=== PATIENT | female | born 1950 | race Caucasian/White ===

== ENCOUNTER 2021-09-09 08:46 | Inpatient (IN) ==
[2021-09-09 09:12] LABS: Basophils # (auto) 0.05 K/uL (0-0.2); Basophils % (auto) 0.7 %; Eosinophils # (auto) 0.19 K/uL (0-0.5); Eosinophils % (auto) 2.8 %; Hematocrit (blood only) 41.5 % (37-47); Hemoglobin 13.8 g/dL (12.0-16.0); Immature Granulocytes # (auto) 0.03 K/uL (0.00-0.02); Immature Granulocytes % (auto) 0.4 %; Lymphocytes # (auto) 2.99 K/uL (1.2-3.4); Lymphocytes % (auto) 43.3 %; Mean Corpuscular Hemoglobin 32.2 pg (25-34); Mean Corpuscular Hgb Conc 33.3 g/dL (32-36); Mean Corpuscular Volume 96.7 fL (80-100); Mean Platelet Volume 10.8 fL (7.4-10.4); Monocytes # (auto) 0.62 K/uL (0.11-0.59); Neutrophils # (auto) 3.02 K/uL (1.4-6.5); Neutrophils % (auto) 43.8 %; Platelet Count 328 K/uL (130-400); RDW Coefficient of Variation 13.5 % (11.5-14.5); RDW Standard Deviation 47.7 fL (36.4-46.3); Red Blood Count 4.29 M/uL (4.2-5.4)
[2021-09-09 09:24] LABS: INR 0.9 (0.9-1.1); Partial Thromboplastin Time 25.4 Seconds (21.0-31.0); Prothrombin Time 9.5 Seconds (9.0-12.0)
[2021-09-09 09:28] LABS: Alanine Aminotransferase 21 U/L (12-78); Albumin Level 3.6 gm/dl (3.4-5.0); Aspartate Aminotransferase 20 U/L (15-37); BUN Creatinine Ratio 20.3 (10-20); Blood Urea Nitrogen 16 mg/dl (7-18); Calcium 9.1 mg/dl (8.5-10.1); Carbon Dioxide 26 mmol/L (21-32); Chloride 106 mmol/L (98-107); Creatinine Clr Calc Pharmacy 64.2 ml/min; Est GFR (African American) 89.4 ml/min; Est GFR (Non-African American) 77.1 ml/min; Glucose 96 mg/dl (70-99); Sodium 139 mmol/L (136-145)
[2021-09-09 09:33] LABS: Albumin Globulin Ratio 0.9 (0.9-2); Alkaline Phosphatase 103 U/L (45-117); Bilirubin,Total 0.4 mg/dl (0.2-1); Globulin 4.1 gm/dl (2.5-4.0); Total Protein 7.7 gm/dl (6.4-8.2); Troponin I < 0.015 ng/ml (0-0.045)
--- NOTE | 2021-09-09 10:00 | XRay Report ---
XR chest 2V PA/lateral CLINICAL HISTORY: Atypical chest pain. COMPARISON STUDY: Chest radiograph October 12, 2012. FINDINGS: Lung volumes are normal. Lungs are clear. There is no pneumothorax or pleural effusion. Car diac size is normal. Mediastinal contours are normal. There is no evidence for pulmonary edema. IMPRESSION: No acute cardiopulmonary findings. ACT 112: Negative or not required by law. Electronically signed by: Jose David Quach M.D. 09/09/2021 9:58 AM
[2021-09-09] MEDS ORDERED: NITROGLYCERIN SL 0.4 MG/TAB TAB SL PRN (11:00)
[2021-09-09] MEDS ORDERED: ASPIRIN CHEW 324 MG PO STA (11:00)
--- NOTE | 2021-09-09 11:06 | Emergency Department Note ---
Impression & Plan Chest pain, exertional, Abnormal ECG ED Provider Note NAME: TALHA BUTTS AGE: 70 SEX: F : 1950 ARRIVES VIA: Walk-In INFORMANT: Patient ED PROVIDER(S): Jersey Eason DO CHIEF COMPLAINT: chest pain HPI: Patient is a 70-year-old female who presents to the ER for chest pain. She notes it is midsternal and pressure and goes up into her neck and down her bilateral arms. She describes as a pressure/tightness. It comes and goes with exertion. Resolves with rest. After she sits down generally goes away within 10 minutes. Denies any belly pain, nausea, vomiting, or diarrhea. No dysuria, urgency, or frequency. She does have a known aortic aneurysm and ascending aspect. It measures just under 4 cm. She had a recent CT scan performed within the past 6 weeks which showed no change. ROS: See above HPI for pertinent positives & negatives. A total of 10 systems reviewed and were otherwise negative. PAST MEDICAL HISTORY:See Below PAST SURGICAL HISTORY:See Below FAMILY HISTORY:See Below SOCIAL HISTORY:See Below HOME MEDICATIONS:See Below ALLERGIES:See Below VITALS:See Below PHYSICAL EXAMINATION: GENERAL: Sitting up in bed, alert, well appearing, well nourished, no distress, non-toxic EYE EXAM: normal conjunctiva. PERRL and EOM's grossly intact. OROPHARYNX: no exudate, no erythema, lips, buccal mucosa, and tongue normal and mucous membranes are moist NECK: supple, no nuchal rigidity, no adenopathy, non-tender LUNGS: Clear to auscultation. Normal chest wall mechanics HEART: no murmurs, S1 normal and S2 normal ABDOMEN: abdomen soft, non-tender, normo-active bowel sounds, no masses, no rebound or guarding. UPPER EXTREMITIES: upper extremities are grossly normal. Radial pulses are equal bilateral LOWER EXTREMITIES: No pitting edema. Calves are ago bilateral NEURO EXAM: Normal sensorium, cranial nerves II-XII grossly intact, normal speech, no gross weakness of arms, no gross weakness of legs. MEDICAL DECISION MAKING: Patient is a 70-year-old female that presents the ER for exertional chest pain which resolves with rest. She was given aspirin and ordered nitro if the pain recurs. Labs showed no significant leukocytosis or anemia. INR was unremarkable. BMP along with LFTs bilirubin and troponin was unremarkable. Covid was negative. Chest x-ray showed normal mediastinum. She does have a known ascending aneurysm at 4 cm which was recently checked within the past 6 weeks and was unremarkable. Patient was discussed with the hospitalist with the exertional symptoms and abnormal findings/ST wave changes V4 through V6. Triage Nursing notes reviewed. Limited review of prior medical records performed Vital Signs: reviewed and remarkable for HTN Differential diagnosis: Differential diagnoses includes but is not limited to acute coronary syndrome, myocardial infarction, pericarditis, pulmonary embolus, aortic dissection, pneumonia, pneumothorax, musculoskeletal, shingles, esophageal. ER treatment provided: See below Diagnostics interpreted by me: ECG: Sinus rhythm rate of 64 Left axis T wave inversion in lead III ST depressions in V3 through V6 QTC 418 ST wave changes are new from old EKG performed in 2011 Cardiac Monitoring: An order was placed for continuous cardiac monitoring. The monitor shows a rate of 62 with sius rhythm. Laboratory studies: As stated above and show below. Imaging studies: Portable AP upright 1 view of the chest shows no focal infiltrate, pneumothorax and a normal mediastinum Consultation(s): Discussed with the hospitalist for further evaluation Dr. Nance Procedures: none Critical Care: None Past Med/Surg History Social History Smoking Status: Never smoker Preferred Language: Arabic Feels Safe at Home: Yes Allergies Allergies Allergy/AdvReac Type Severity Reaction Status Date / Time No Known Allergies Allergy Unverified 09/09/21 11:34 Home Meds Home Medications Medication Instructions Recorded Confirmed cholecalciferol (vitamin D3) 25 1 unit PO DAILY 09/09/21 09/09/21 mcg (1,000 unit) tablet (Vitamin D3) cyanocobalamin (vitamin B-12) 1,000 mcg PO DAILY 09/09/21 09/09/21 1,000 mcg tablet (Vitamin B-12) Results & Data (ED) Vital Signs Vital Signs - 24 hr 09/09/21 08:52 09/09/21 11:02 Temperature 36.0 C L Temperature Source Temporal Artery Scan Pulse Rate 73 Pulse Rate [Apical] 60 Pulse Rhythm Regular Pulse Rhythm [Apical] Regular Pulse Strength Normal Pulse Strength [Apical] Normal Respiratory Rate 20 16 Respiratory Effort / Characteristics Non-Labored Spontaneous Non-Labored Spontaneous Respiratory Depth Normal Normal Respiratory Pattern Regular Regular Blood Pressure 120/82 Blood Pressure [Left Arm] 149/81 H Blood Pressure Mean 94 Blood Pressure Mean [Left Arm] 103 Blood Pressure Position Sitting Blood Pressure Position [Left Arm] Semi-fowlers Pulse Oximetry 98 99 Oxygen Delivery Method Room Air Room Air Sepsis Recent Fever Within 48 Hours No Sepsis New/Unexplained Change in Mental Status No Sepsis Action Taken by Nursing No Action Required Laboratory Data Result diagrams: 09/09/21 09:04 09/09/21 09:04 Lab Results 09/09/21 09/09/21 09/09/21 Range/Units 09:04 09:04 09:04 WBC 6.90 (4.8-10.8) K/uL RBC 4.29 (4.2-5.4) M/uL Hgb 13.8 (12.0-16.0) g/dL Hct 41.5 (37-47) % MCV 96.7 (80-100) fL MCH 32.2 (25-34) pg MCHC 33.3 (32-36) g/dL RDW Std Deviation 47.7 H (36.4-46.3) fL RDW Coeff of Jyothi 13.5 (11.5-14.5) % Plt Count 328 (130-400) K/uL MPV 10.8 H (7.4-10.4) fL Immature Gran % (Auto) 0.4 % Neut % (Auto) 43.8 % Lymph % (Auto) 43.3 % [place] % (Auto) 9.0 % Eos % (Auto) 2.8 % Baso % (Auto) 0.7 % Neut # (Auto) 3.02 (1.4-6.5) K/uL Lymph # (Auto) 2.99 (1.2-3.4) K/uL [place] # (Auto) 0.62 H (0.11-0.59) K/uL Eos # (Auto) 0.19 (0-0.5) K/uL Baso # (Auto) 0.05 (0-0.2) K/uL Immature Gran # (Auto) 0.03 H (0.00-0.02) K/uL PT 9.5 (9.0-12.0) Seconds INR 0.9 (0.9-1.1) APTT 25.4 (21.0-31.0) Seconds PTT Ratio 1.0 Sodium 139 (136-145) mmol/L Potassium 4.0 (3.5-5.1) mmol/L Chloride 106 (98-107) mmol/L Carbon Dioxide 26 (21-32) mmol/L Anion Gap 7.0 (3-11) BUN 16 (7-18) mg/dl Creatinine 0.77 (0.6-1.2) mg/dl Est Cr Clr Drug Dosing 64.2 ml/min Est GFR ( Amer) 89.4 ml/min Est GFR (Non-Af Amer) 77.1 ml/min BUN/Creatinine Ratio 20.3 H (10-20) Glucose 96 (70-99) mg/dl Calcium 9.1 (8.5-10.1) mg/dl Total Bilirubin 0.4 (0.2-1) mg/dl AST 20 (15-37) U/L ALT 21 (12-78) U/L Alkaline Phosphatase 103 (45-117) U/L Troponin I < 0.015 (0-0.045) ng/ml Total Protein 7.7 (6.4-8.2) gm/dl Albumin 3.6 (3.4-5.0) gm/dl Globulin 4.1 H (2.5-4.0) gm/dl Albumin/Globulin Ratio 0.9 (0.9-2) SARS-CoV-2, RNA, NAAT (NEGATIVE) 09/09/21 Range/Units 11:11 WBC (4.8-10.8) K/uL RBC (4.2-5.4) M/uL Hgb (12.0-16.0) g/dL Hct (37-47) % MCV (80-100) fL MCH (25-34) pg MCHC (32-36) g/dL RDW Std Deviation (36.4-46.3) fL RDW Coeff of Jyothi (11.5-14.5) % Plt Count (130-400) K/uL MPV (7.4-10.4) fL Immature Gran % (Auto) % Neut % (Auto) % Lymph % (Auto) % [place] % (Auto) % Eos % (Auto) % Baso % (Auto) % Neut # (Auto) (1.4-6.5) K/uL Lymph # (Auto) (1.2-3.4) K/uL [place] # (Auto) (0.11-0.59) K/uL Eos # (Auto) (0-0.5) K/uL Baso # (Auto) (0-0.2) K/uL Immature Gran # (Auto) (0.00-0.02) K/uL PT (9.0-12.0) Seconds INR (0.9-1.1) APTT (21.0-31.0) Seconds PTT Ratio Sodium (136-145) mmol/L Potassium (3.5-5.1) mmol/L Chloride (98-107) mmol/L Carbon Dioxide (21-32) mmol/L Anion Gap (3-11) BUN (7-18) mg/dl Creatinine (0.6-1.2) mg/dl Est Cr Clr Drug Dosing ml/min Est GFR ( Amer) ml/min Est GFR (Non-Af Amer) ml/min BUN/Creatinine Ratio (10-20) Glucose (70-99) mg/dl Calcium (8.5-10.1) mg/dl Total Bilirubin (0.2-1) mg/dl AST (15-37) U/L ALT (12-78) U/L Alkaline Phosphatase (45-117) U/L Troponin I (0-0.045) ng/ml Total Protein (6.4-8.2) gm/dl Albumin (3.4-5.0) gm/dl Globulin (2.5-4.0) gm/dl Albumin/Globulin Ratio (0.9-2) SARS-CoV-2, RNA, NAAT NEGATIVE (NEGATIVE) Administered Medications Nitroglycerin (Nitroglycerin Sl 0.4 Mg/Tab Tab) 0.4 mg SL PRN PRN PRN Reason: chest pain Stop: 10/09/21 10:59 Last Admin: 09/09/21 11:09 Dose: 0.4 mg Documented by: [id number] Discontinued Medications Aspirin (Aspirin Chew 324 Mg) 324 mg PO NOW STA Stop: 09/09/21 11:01 Last Admin: 09/09/21 11:08 Dose: 324 mg Documented by: [id number] Ioversol (Optiray 320 125ml) 120 ml IV ONCE ONE Stop: 09/09/21 13:34 Last Admin: 09/09/21 13:34 Dose: 120 ml Documented by: [id number] Imaging Data Radiologist's Impression: Chest X-Ray 09/09/21 09:02 XR chest 2V PA/lateral CLINICAL HISTORY: Atypical chest pain. COMPARISON STUDY: Chest radiograph October 12, 2012. FINDINGS: Lung volumes are normal. Lungs are clear. There is no pneumothorax or pleural effusion. Cardiac size is normal. Mediastinal contours are normal. There is no evidence for pulmonary edema. IMPRESSION: No acute cardiopulmonary findings. ACT 112: Negative or not required by law. Electronically signed by: Jose David Quach M.D. 09/09/2021 9:58 AM Chest CTA 09/09/21 13:10 CT ANGIOGRAPHY OF THE CHEST DISSECTION PROTOCOL CLINICAL HISTORY: Midsternal chest pain. Arm pain. H/o Thoracic Aortic aneurysm COMPARISON STUDY: Chest radiograph performed earlier today. TECHNIQUE: Before and following the IV administration of 120 mL of Optiray, helical axial images of the chest were obtained. Maximal intensity projections and sagittal and coronal reformats were viewed on an independent 3D workstation. IV contrast was administered without complication. Automated exposure control was utilized for the study. A dose lowering technique was utilized adhering to the principles of ALARA. CT DOSE: 567.83 mGy.cm FINDINGS: Caliber of the thoracic aorta is at the upper limits of normal, measuring 3.6 cm at the level of the main pulmonary. There is no thoracic aortic dissection or intramural hematoma. Mild cardiomegaly is noted. There is no pericardial effusion. No pulmonary emboli are identified. No enlarged axillary, mediastinal or hilar lymph nodes are present. There is no pneumomediastinum. The central airways are patent. No consolidation is present to suggest pneumonia. Mild subpleural groundglass opacities reflect atelectasis. There is no pneumothorax or pleural effusion. There is no acute fracture or suspicious lesion within visualized portions of the bony thorax. A 3.4 cm hypervascular segment within the medial segment of the left hepatic lobe is partially imaged on this exam. Upper abdomen is otherwise unremarkable. IMPRESSION: 1. No thoracic aortic dissection. 2. No acute process within the chest. 3. Mild cardiomegaly. 4. 3.4 cm hypervascular lesion within the medial segment of the left hepatic lobe, partially imaged on this exam. This may reflect focal nodular hyperplasia or a hemangioma although is indeterminate. Correlation with prior imaging studies, if available, is recommended. In the absence of prior studies, a nonemergent liver MRI is recommended. ACT 112: Negative or not required by law. Electronically signed by: Jose David Quach M.D. 09/09/2021 1:56 PM Discharge Plan Visit Data Chief Complaint: Chest Pain Stated Complaint: CHEST PAIN/RADIATING DOWN BOTH ARMS & TO BACK ED Provider: Jersey Eason Discharge Problem: Chest pain, exertional, Abnormal ECG Forms Stand Alone Forms: [email or web address] Prescriptions Prescriptions: No Action cyanocobalamin (vitamin B-12) [Vitamin B-12] 1,000 mcg Tablet 1,000 mcg PO DAILY RF: 0 cholecalciferol (vitamin D3) [Vitamin D3] 25 mcg (1,000 unit) Tablet 1 unit PO DAILY RF: 0 Referrals Referrals: PCP,NO [Physician] -
--- NOTE | 2021-09-09 12:33 | Electrocardiogram Report ---
Test Reason : Blood Pressure : / mmHG Vent. Rate : 064 BPM Atrial Rate : 064 BPM P-R Int : 202 ms QRS Dur : 086 ms QT Int : 406 ms P-R-T Axes : 032 -42 -03 degrees QTc Int : 418 ms Normal sinus rhythm Left axis deviation Incomplete right bundle branch block Abnormal ECG When compared with ECG of 12-OCT-2012 22:53, ST now depressed in Lateral leads T wave inversion now evident in Anterolateral leads Confirmed by Jefry Prescott ([id number]) on 09/09/2021 12:33:17 PM Referred By: Confirmed By:Jean Carlos Prescott
--- NOTE | 2021-09-09 12:54 | History & Physical Report ---
Date of Service September 09, 2021 Assessment & Plan (1) Chest pain: Plan: Chest pain EKG showing some ST depression in lateral leads. Initial troponin negative. We will trend. Telemetry monitoring Due to history of reported thoracic aortic aneurysm, will get CT angio dissection study. Discussed with patient she is okay with this. Cardiology consult May get an echo tomorrow if needed Dispo - Tele DVT ppx - Ambulate, SCD History of Present Illness Chief Complaint: Chest pain Primary Care Provider: JEREMY DIAZ 70-year-old woman with reported history of thoracic aortic aneurysm who presents to the hospital complaining of chest pain. Patient reported that chest pain started while she was driving from [place] to her sister's yesterday. Initially chest pain was described as constricting, not referred, lasted a few minutes. Occurred twice yesterday [initially during the drive and another episode while walking back after using the restroom to the car] Reports waking up this morning with similar chest constriction, referred to the neck, associated with tingling in both hands and states that she felt a little short of breath at the time. Lasted some minutes and stopped. Patient also reported another episode this morning prior to presentation to the hospital and had 2 more episodes while in the hospital walking to the bathroom as well as to x-ray. She denied similar episodes in the past. Patient reports history of thoracic aortic aneurysm that was diagnosed 4 years ago and had been monitored. Reports last scan was about 6 weeks ago which was unchanged On presentation to the ER, EKG showedST depression in lateral leads. 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 No chemo. Had radiation Bunionectomy D/C 1999 Tonsillectomy at 2 years Denied any known allergies Allergies Allergy/AdvReac Type Severity Reaction Status Date / Time No Known Allergies Allergy Unverified 09/09/21 11:34 Home Medications Medication Instructions Recorded Confirmed Type cholecalciferol (vitamin D3) 25 1 unit PO DAILY 09/09/21 09/09/21 History mcg (1,000 unit) tablet (Vitamin D3) cyanocobalamin (vitamin B-12) 1,000 mcg PO DAILY 09/09/21 09/09/21 History 1,000 mcg tablet (Vitamin B-12) Past Med/Surg History Social History Smoking Status: Never smoker Preferred Language: Panamanian Feels Safe at Home: Yes Review of Systems Eyes: no worsening vision Ear, Nose, Mouth, Throat: + dizziness No ear ache, dizziness or discharge Respiratory: No cough Cardiovascular: Additional Comments: + Chest pain/constriction Gastrointestinal: no abdominal pain, no nausea and no vomiting Genitourinary: no dysuria, no urinary frequency and no urinary urgency Musculoskeletal: no back pain and no muscle weakness Neurologic: No headache, dizziness, unsteadiness, paresthesias Psychiatric: No anxiety or depression Physical Exam Constitutional: + well hydrated; no acute distress Eyes: PERRL, conjunctivae normal, anicteric sclerae ENMT: external ear and nose normal, oropharynx normal Respiratory: normal respiratory effort, lungs clear to auscultation Cardiovascular: RRR, no murmur, no edema Gastrointestinal (Abdomen): normal bowel sounds, soft, nontender, no hepatosplenomegaly Musculoskeletal: no cyanosis or clubbing, extremities motor strength 5/5 Neurologic: PERRL, EOMI, accommodation nl, no face palsy, no dysarthria Psychiatric: A+Ox3, euthymic affect Results & Data Results & Data ([facility]) Vital Signs (Past 12 Hours) Vital Signs Temp Pulse Pulse Resp BP BP Pulse Ox 09/09/21 11:02 60 16 149/81 H 99 09/09/21 08:52 36.0 C L 73 20 120/82 98 Laboratory Results Abnormal lab results 09/09/21 09/09/21 Range/Units 09:04 09:04 RDW Std Deviation 47.7 H (36.4-46.3) fL MPV 10.8 H (7.4-10.4) fL [place] # (Auto) 0.62 H (0.11-0.59) K/uL Immature Gran # (Auto) 0.03 H (0.00-0.02) K/uL BUN/Creatinine Ratio 20.3 H (10-20) Globulin 4.1 H (2.5-4.0) gm/dl
[2021-09-09] MEDS ORDERED: OPTIRAY 320 125ml IV ONE (13:33)
--- NOTE | 2021-09-09 13:57 | CT Scan Report ---
CT ANGIOGRAPHY OF THE CHEST DISSECTION PROTOCOL CLINICAL HISTORY: Midsternal chest pain. Arm pain. H/o Thoracic Aortic aneurysm COMPARISON STUDY: Chest radiograph performed earlier today. TECHNIQUE: Before and following the IV administration of 120 mL of Optiray, helical axial images of t he chest were obtained. Maximal intensity projections and sagittal and coronal reformats were viewed on an independent 3D workstation. IV contrast was administered without complication. Automated exp osure control was utilized for the study. A dose lowering technique was utilized adhering to the michi Giraldo. CT DOSE: 567.83 mGy.cm FINDINGS: Caliber of the thoracic aorta is at the upper limits of normal, measuring 3.6 cm at the le marbella of the main pulmonary. There is no thoracic aortic dissection or intramural hematoma. Mild cardio megaly is noted. There is no pericardial effusion. No pulmonary emboli are identified. No enlarged ax illary, mediastinal or hilar lymph nodes are present. There is no pneumomediastinum. The central airw ays are patent. No consolidation is present to suggest pneumonia. Mild subpleural groundglass opaciti es reflect atelectasis. There is no pneumothorax or pleural effusion. There is no acute fracture or s uspicious lesion within visualized portions of the bony thorax. A 3.4 cm hypervascular segment within the medial segment of the left hepatic lobe is partially imaged on this exam. Upper abdomen is other askew unremarkable. IMPRESSION: 1. No thoracic aortic dissection. 2. No acute process within the chest. 3. Mild cardiomegaly. 4. 3.4 cm hypervascular lesion within the medial segment of the left hepatic lobe, partially imaged o n this exam. This may reflect focal nodular hyperplasia or a hemangioma although is indeterminate. Co rrelation with prior imaging studies, if available, is recommended. In the absence of prior studies, a nonemergent liver MRI is recommended. ACT 112: Negative or not required by law. Electronically signed by: Jose David Quach M.D. 09/09/2021 1:56 PM
[2021-09-10 06:31] LABS: Hematocrit (blood only) 36.9 % (37-47); Hemoglobin 12.9 g/dL (12.0-16.0); Mean Corpuscular Hemoglobin 33.3 pg (25-34); Mean Corpuscular Volume 95.3 fL (80-100); Mean Platelet Volume 10.8 fL (7.4-10.4); Platelet Count 306 K/uL (130-400); RDW Coefficient of Variation 13.5 % (11.5-14.5); Red Blood Count 3.87 M/uL (4.2-5.4); White Blood Count 5.44 K/uL (4.8-10.8)
[2021-09-10 07:08] LABS: BUN Creatinine Ratio 19.4 (10-20); Calcium 8.8 mg/dl (8.5-10.1); Creatinine Clr Calc Pharmacy 66.8 ml/min; Est GFR (African American) 93.8 ml/min; Est GFR (Non-African American) 80.9 ml/min; Potassium 3.8 mmol/L (3.5-5.1)
[2021-09-10] MEDS: CHOLECALCIFEROL 1,000 UNITS 25 MCG TAB PO SCH (07:21)
[2021-09-10] MEDS: CYANOCOBALAMIN 500 MCG TABLET (VITAMIN B-12) PO SCH (07:21)
[2021-09-10 09:52] LABS: Estimated Average Glucose 111 mg/dl; Hemoglobin A1C 5.5 % (4.5-5.6)
[2021-09-10] MEDS: ATORVASTATIN 40 MG TAB PO SCH (09:55)
[2021-09-10] MEDS: ASPIRIN 81 MG ECTAB PO SCH (09:55)
--- NOTE | 2021-09-10 09:55 | Communication Note ---
Date of Service: September 10, 2021 The patient has been having exertional chest pain including after admission even walking to the bathroom. Cardiac markers are negative. Her EKG is of concern due to T wave abnormalities in the anterior and lateral leads. I think the best option is to proceed with a cardiac catheterization. I have explained the risk, benefit and intent of the procedure to the patient and she is willing to proceed.
[2021-09-10] MEDS ORDERED: SODIUM CHLORIDE 0.9% 1000ML 1,000 ML IV SCH (10:00)
[2021-09-10 10:03] LABS: Chol HDL Ratio 2; Cholesterol 229 mg/dl (0-200); HDL Cholesterol 105 mg/dl; LDL Cholesterol Calculated 103 mg/dl; Triglycerides 103 mg/dl (0-150); VLDL Cholesterol 21 mg/dl
--- NOTE | 2021-09-10 10:34 | Cardiology Consultation ---
Date of Consultation September 10, 2021 Assessment & Plan (1) Unstable angina: (2) Chest pain, exertional: (3) Abnormal EC70 year old female admitted with chest discomfort occurring with minimal activity and now at rest, symptoms concerning for unstable angina pectoris. Troponin I negative x 3. EKG with anterolateral ST-T wave abnormality concerning for ischemia. Options of management discussed. I think the best option is to proceed with diagnostic cardiac catheterization. Risks, benefits, and alternatives explained. Further recommendations pending evaluation by Dr. Zuniga. Supervising Physician Co-Signing Physician Notes I have discussed the case with Mr. Crespo. I reviewed the medical record and examined the patient. I agree that the best option here is to proceed with a cardiac catheterization. Although her cardiac markers are negative and her EKG is somewhat equivocal, her story is consistent with new onset angina. I have explained the risk, benefit and intent of the procedure to the patient and she is willing to proceed. History of Present Illness Reason for Consultation: Chest pain Requesting Physician: Will Attending Physician: Luna Solis MD History of Present Illness Michelle Solis is a very pleastant 70-year-old female who was traveling from her home in [place] to visit her sister in [place], [place] on Monday, Sep 08, 2021. [place] stop along [place] [place] [address] to use the restroom near [place], [place]. When walking back to the car she experienced what she describes as a funny sensation in the chest, pressure or restriction with associated shortness of breath, radiating into the neck and down the arms, aggravated by minimal activity, alleviated by rest. She experienced recurrent symptoms at her sister's house x3 with activity such as walking back from the restroom, resolving with after approximately 10 minutes. The patient notes that her nephew is an EMT and advised further evaluation, pr esenting to the [facility] ER in the morning of Sep 09, 2021. EKG on presentation revealed normal sinus rhythm at 62 bpm with a first-degree AV block, possible left atrial enlargement, incomplete right bundle branch block, and anterolateral T wave inversion, nonspecific inferior ST-T wave abnormality. Troponin negative x3. This morning (09/10/2021), the patient experienced discomfort when walking from the bed to the doorway and again after eating breakfast. EKG while experiencing discomfort this morning revealed normal sinus rhythm at [address]-T wave abnormality concerning for ischemia, with possible left atrial enlargement, left axis deviation, incomplete right bundle branch block. Data: 1. Chest x-ray on presentation showed no acute cardiopulmonary findings 2. Chest CTA on Sep 09, 2021 revealed a 3.6 cm thoracic aorta at the level of the main pulmonary artery. No dissection or intraluminal hematoma observed. No acute process identified within the chest. 3. Continuous telemetry monitoring reveals sinus bradycardia/sinus rhythm with heart rates predominantly in the 50s and 60s. 4. Creatinine 0.74 mg/deciliter this AM 5. Lipids and LFT's obtained this admission: Total cholesterol 229. LDL 103. HDL 105. Triglycerides 103. AST 20. ALT 21. Alk phos 103. Past Medical and Surgical History: Dilated thoracic aorta Coronary calcium score of 0 ~4 years ago. Breast cancer status post lumpectomy GERD Dyslipidemia Detached vitreous Cataracts Murmur as a child Family history of diabetes Bunionectomy D&C Tonsillectomy Family History: Mother with pancreatic cancer at the age of 67. Father with colon cancer in his 80s. Sister Dai had a CVA 13 years ago; she is alive at the age of 70. Brother Alen had a CVA 13 years ago; he is alive at the age of 75. Social History: Non-smoker. Daily consumption of wine. No illegal drug use. 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 No fevers, night sweats, or chills. HEENT: See above. No amaurosis fugax. Pulmonary: No history of sleep apnea, pulmonary embolism, COPD or asthma. Cardiac: See above. GI/Abd: + GERD. Endoscopy last year was reportedly OK. Notes taking something for heartburn at that time, for two weeks. No dysphagia. No melana or hematochezia. Denies liver or kidney problems. Vascular: Denies history of claudication, AAA, or carotid artery disease. Hematologic: No coagulation disorder, anemia, or abnormal bleeding. Musculoskeletal: Negative. Skin: Negative. Neurologic: No history of TIA or CVA. No history of seizure. Female : See above. Endocrine: Denies history of diabetes or thyroid issues. Complete Review of Systems is as stated above, negative, or noncontributory. Allergies Allergy/AdvReac Type Severity Reaction Status Date / Time No Known Allergies Allergy Unverified 09/09/21 11:34 Home Medications Medication Instructions Recorded Confirmed Type cholecalciferol (vitamin D3) 25 1 unit PO DAILY 09/09/21 09/09/21 History mcg (1,000 unit) tablet (Vitamin D3) cyanocobalamin (vitamin B-12) 1,000 mcg PO DAILY 09/09/21 09/09/21 History 1,000 mcg tablet (Vitamin B-12) Patient History Social History Smoking Status: Never smoker Second Hand Exposure: No; Do You Dip or Chew Tobacco: No; Tobacco Cessation Education Requested by Patient: No Hx Alcohol Use: No Hx Substance Use: No Preferred Language: Sammarinese Communication Ability: Effective Associate Professor Of History Required: No Beliefs That Will Affect Care: None Current Living Situation: Alone Other Information That Helps Us Care for You: No Feels Safe at Home: Yes Safety Concerns: Feels Safe At This Time Assistive Devices: None Physical Exam Physical Exam: General: A&Ox3. NAD. HENT: Normocephalic. Atraumatic. Eyes: PER. Conjunctiva pink, sclera clear. Neck: No carotid bruits. No JVD. No HJR. Chest: No chest wall tenderness Heart: RRR. No murmur. No rub. No gallop. PMI is nondisplaced. Lungs: Clear to auscultation. Abdomen: +BS. Soft. Nontender. No masses or organomegaly. Extremities: No clubbing, cyanosis, or edema. Limited neurological examination is without focal deficits. Pulses: radial=2/4, posterior tibial=2/4. Results & Data ([facility]) Vital Signs (Past 12 Hours) Vital Signs Temp Pulse Pulse Resp BP Pulse Ox 09/10/21 07:08 55 L 09/10/21 06:52 36.7 C 61 18 117/69 94 09/10/21 03:52 36.8 C 62 18 111/71 95 Laboratory Results Laboratory Results - last 48 hr 09/09/21 09/09/21 09/09/21 09:04 09:04 09:04 WBC 6.90 RBC 4.29 Hgb 13.8 Hct 41.5 MCV 96.7 MCH 32.2 MCHC 33.3 RDW Std Deviation 47.7 H RDW Coeff of Jyothi 13.5 Plt Count 328 MPV 10.8 H Immature Gran % (Auto) 0.4 Neut % (Auto) 43.8 Lymph % (Auto) 43.3 [place] % (Auto) 9.0 Eos % (Auto) 2.8 Baso % (Auto) 0.7 Neut # (Auto) 3.02 Lymph # (Auto) 2.99 [place] # (Auto) 0.62 H Eos # (Auto) 0.19 Baso # (Auto) 0.05 Immature Gran # (Auto) 0.03 H PT 9.5 INR 0.9 APTT 25.4 PTT Ratio 1.0 Sodium 139 Potassium 4.0 Chloride 106 Carbon Dioxide 26 Anion Gap 7.0 BUN 16 Creatinine 0.77 Est Cr Clr Drug Dosing 64.2 Est GFR ( Amer) 89.4 Est GFR (Non-Af Amer) 77.1 BUN/Creatinine Ratio 20.3 H Glucose 96 Estimat Average Glucose Hemoglobin A1c Calcium 9.1 Total Bilirubin 0.4 AST 20 ALT 21 Alkaline Phosphatase 103 Troponin I < 0.015 Total Protein 7.7 Albumin 3.6 Globulin 4.1 H Albumin/Globulin Ratio 0.9 Triglycerides Cholesterol LDL Cholesterol, Calc VLDL Cholesterol, Calc HDL Cholesterol Cholesterol/HDL Ratio SARS-CoV-2, RNA, NAAT 09/09/21 09/09/21 09/10/21 11:11 19:22 01:04 WBC RBC Hgb Hct MCV MCH MCHC RDW Std Deviation RDW Coeff of Jyothi Plt Count MPV Immature Gran % (Auto) Neut % (Auto) Lymph % (Auto) [place] % (Auto) Eos % (Auto) Baso % (Auto) Neut # (Auto) Lymph # (Auto) [place] # (Auto) Eos # (Auto) Baso # (Auto) Immature Gran # (Auto) PT INR APTT PTT Ratio Sodium Potassium Chloride Carbon Dioxide Anion Gap BUN Creatinine Est Cr Clr Drug Dosing Est GFR ( Amer) Est GFR (Non-Af Amer) BUN/Creatinine Ratio Glucose Estimat Average Glucose Hemoglobin A1c Calcium Total Bilirubin AST ALT Alkaline Phosphatase Troponin I < 0.015 < 0.015 Total Protein Albumin Globulin Albumin/Globulin Ratio Triglycerides Cholesterol LDL Cholesterol, Calc VLDL Cholesterol, Calc HDL Cholesterol Cholesterol/HDL Ratio SARS-CoV-2, RNA, NAAT NEGATIVE 09/10/21 09/10/21 09/10/21 06:03 06:03 06:03 WBC 5.44 RBC 3.87 L Hgb 12.9 Hct 36.9 L MCV 95.3 MCH 33.3 MCHC 35.0 RDW Std Deviation 47.0 H RDW Coeff of Jyothi 13.5 Plt Count 306 MPV 10.8 H Immature Gran % (Auto) Neut % (Auto) Lymph % (Auto) [place] % (Auto) Eos % (Auto) Baso % (Auto) Neut # (Auto) Lymph # (Auto) [place] # (Auto) Eos # (Auto) Baso # (Auto) Immature Gran # (Auto) PT INR APTT PTT Ratio Sodium 138 Potassium 3.8 Chloride 107 Carbon Dioxide 26 Anion Gap 5.0 BUN 14 Creatinine 0.74 Est Cr Clr Drug Dosing 66.8 Est GFR ( Amer) 93.8 Est GFR (Non-Af Amer) 80.9 BUN/Creatinine Ratio 19.4 Glucose 92 Estimat Average Glucose 111 Hemoglobin A1c 5.5 Calcium 8.8 Total Bilirubin AST ALT Alkaline Phosphatase Troponin I Total Protein Albumin Globulin Albumin/Globulin Ratio Triglycerides Cholesterol LDL Cholesterol, Calc VLDL Cholesterol, Calc HDL Cholesterol Cholesterol/HDL Ratio SARS-CoV-2, RNA, NAAT 09/10/21 06:03 WBC RBC Hgb Hct MCV MCH MCHC RDW Std Deviation RDW Coeff of Jyothi Plt Count MPV Immature Gran % (Auto) Neut % (Auto) Lymph % (Auto) [place] % (Auto) Eos % (Auto) Baso % (Auto) Neut # (Auto) Lymph # (Auto) [place] # (Auto) Eos # (Auto) Baso # (Auto) Immature Gran # (Auto) PT INR APTT PTT Ratio Sodium Potassium Chloride Carbon Dioxide Anion Gap BUN Creatinine Est Cr Clr Drug Dosing Est GFR ( Amer) Est GFR (Non-Af Amer) BUN/Creatinine Ratio Glucose Estimat Average Glucose Hemoglobin A1c Calcium Total Bilirubin AST ALT Alkaline Phosphatase Troponin I Total Protein Albumin Globulin Albumin/Globulin Ratio Triglycerides 103 Cholesterol 229 H LDL Cholesterol, Calc 103 VLDL Cholesterol, Calc 21 HDL Cholesterol 105 Cholesterol/HDL Ratio 2 SARS-CoV-2, RNA, NAAT
[2021-09-10] MEDS ORDERED: MIDAZOLAM HCL 1 MG/ML 2ML VIAL ONE ×2 (11:43→12:31)
[2021-09-10] MEDS ORDERED: niCARdipine HCL INJ 2.5 MG/ML 10 ML AMP ONE (11:43)
[2021-09-10] MEDS ORDERED: fentaNYL citrate 100 MCG/2 ML VIAL ONE (11:43)
[2021-09-10] MEDS ORDERED: HEPARIN (PORCINE) 1000 UNIT/ML 10 ML (CATH LAB USE ONLY) ONE (11:44)
[2021-09-10] MEDS ORDERED: NITROGLYCERIN/D5W 100MCG/ML 20ML SYR ONE (11:45)
--- NOTE | 2021-09-10 13:10 | Cardiac Catheterization ---
Date of Service September 10, 2021 Cardiac Cath Report Cardiac Cath Report Procedure: 1. Left heart catheterization 2. Coronary angiography 3. Left ventriculogram History: This is a 70-year-old female who presented with classic exertional angina and was admitted to the hospital. Procedure summary: After informed consent was obtained the patient was brought to the cardiac catheterization lab where an attempt at access through the radial artery was unsuccessful. The patient was then prepped for a right transfemoral approach. Preformed 5 Palestinian diagnostic catheters were utilized for the coronary angiograms. A 5 Palestinian pigtail catheter was utilized for the left ventriculogram's and left heart pressures. Following the procedure the patient underwent coronary intervention and then was admitted in stable condition. ACC data: Start time 12:15 PM End time 1309 p.m. Opening aortic pressure 103/55 Closing aortic pressure 135/66 LV pressure 123/5 Sedation 2 mg intravenous Versed IV fluids 74 cc normal saline Contrast 108 cc Visipaque Fluoroscopy time 4.3 minutes Radiation 387 mGy DAP 39.48 Suárez per centimeter squared Right dominant system AUC score 7 Coronary angiography: Selective injections of the right coronary artery revealed the right coronary artery to be dominant. The right coronary artery is smooth appearance widely patent and within normal limits. Selective injections of the left coronary artery reveals the left main trunk to be widely patent. The LAD extends only to the apex of the heart. In the proximal portion of the left anterior descending there is a concentric 95% stenosis. There is a medium sized ramus branch of the left main trunk that is patent. The left circumflex artery consists principally of a large posterior lateral marginal branch. The left circumflex system is widely patent. Left ventriculogram: The left ventricle is of normal size with normal systolic function. Mitral valve is competent. Aortic root and ascending aorta have normal morphology and diameter. Summary: The patient has single-vessel coronary artery disease with a subtotaled stenosis of the proximal LAD. The remainder the coronary anatomy is within normal limits Recommendations: Part 4 coronary intervention on the LAD.
--- NOTE | 2021-09-10 13:13 | Pre Anesthesia Assessment ---
Date of Service September 10, 2021 Pre Sedation Assessment Vital Signs Temp Pulse Pulse Pulse Resp BP BP 09/10/21 11:00 36.7 C 70 18 09/10/21 07:08 55 L 09/10/21 06:52 36.7 C 61 18 09/10/21 03:52 36.8 C 62 18 09/09/21 22:18 59 L 09/09/21 22:00 36.6 C 58 L 18 09/09/21 19:09 36.8 C 71 20 114/77 09/09/21 19:00 09/09/21 18:22 66 09/09/21 17:14 73 16 117/79 09/09/21 15:00 60 16 129/81 BP Pulse Ox Pulse Ox 09/10/21 11:00 115/73 94 09/10/21 07:08 09/10/21 06:52 117/69 94 09/10/21 03:52 111/71 95 09/09/21 22:18 09/09/21 22:00 119/75 96 09/09/21 19:09 98 09/09/21 19:00 98 09/09/21 18:22 09/09/21 17:14 99 09/09/21 15:00 99 Pre-Sedation Airway Assessment Smoking Status: Never smoker Notes The planned sedation has been discussed with the patient. Informed Consent was obtained. I have identified the patient, determined the appropriateness of sedation and have assessed the patient immediately prior to the procedure. All medicine(s) and interventions are by my order.
[2021-09-10] MEDS ORDERED: CLOPIDOGREL BISULFATE 300 MG TAB ONE (13:48)
--- NOTE | 2021-09-10 14:00 | Post Anesthesia Assessment ---
Date of Service September 10, 2021 Post Sedation Assessment Vital Signs Temp Pulse Pulse Pulse Resp BP BP 09/10/21 11:00 98.1 F 70 18 09/10/21 07:08 55 L 09/10/21 06:52 98.1 F 61 18 09/10/21 03:52 98.2 F 62 18 09/09/21 22:18 59 L 09/09/21 22:00 97.9 F 58 L 18 09/09/21 19:09 98.2 F 71 20 114/77 09/09/21 19:00 09/09/21 18:22 66 09/09/21 17:14 73 16 117/79 09/09/21 15:00 60 16 129/81 BP Pulse Ox Pulse Ox 09/10/21 11:00 115/73 94 09/10/21 07:08 09/10/21 06:52 117/69 94 09/10/21 03:52 111/71 95 09/09/21 22:18 09/09/21 22:00 119/75 96 09/09/21 19:09 98 09/09/21 19:00 98 09/09/21 18:22 09/09/21 17:14 99 09/09/21 15:00 99 Recovery Score Activity: Moves 4 extremities Respiration: Deep Breath/Cough Circulation: +/-20% PreAnes Value Consciousness: Fully Awake Oxygen Saturation: O2 needed for >90% Discharge Sedation Level of Care: Fast Track Phase II Post Sedation Plan On clinical assessment, the patient appears to have tolerated the sedation without complications. Patient is recovering as anticipated. Patient will continue to be monitored by nursing and may be discharged when sedation discharge criteria are met per below protocol. Upon Completions of procedure up to 15 minutes continue every 5 minute vital signs and the P.A.R. score; then discharge to a Phase I or Fast Track to Phase II per the following guidelines: * Discharge Patient to appropriate Phase II area if PAR is 8 or greater or return to pre- procedure baseline. The post - procedure orders will be as directed. * If PAR score is less than 8 or not return to pre-procedure baseline then patient will follow Phase I monitoring till PAR is reached for Phase II. The Phase I may be done in procedure room or may call to secure a Phase I area. * If naloxone or flumazenil are used for reversal, hold in Phase I for continued monitoring from when last reversal dose was given for a minimum of 60 minutes or longer pending the nurse and/or physician discretion of patient condition before discharge to Phase II. Please call the Sedation Physician to re-evaluate and complete post-note for discharge to Phase II area. Do NOT discharge from procedure sedation or Phase 1 until post- sedation evaluation note is complete by procedure /sedation MD Sedation Discharge Instructions to be given to the patient at discharge to home.
--- NOTE | 2021-09-10 14:06 | Cardiac Catheterization ---
[facility] Data: Color Depositing Machine Tender Cardiac Status Clinical evaluation leading to the procedure CAD Presenation: Unstable angina Anginal Classification: CCS IV Heart Failure: No Diagnostic Physicians Name: Jefry Henao MD Status: Elective Closure Device Percutaneous Entry Location: Radial Closure Device: Radial Band Recommendations: PCI without planned CABG PCI Indication: Unstable Angina Lesion Segment Name: Proximal LAD Culprit Artery: Yes Stenosis Prior to Rx (%): 95 Chronic Total Occlusion: No IVUS: No FFR: No Pre-Procedure AMBAR Flow: 3 Previously Treated Lesion: No Lesion Complexity: Non-High/Non-C Lesion Length (mm): 12 Thrombus Present: Yes Bifurcation Lesion: No Guidewire Across Lesion: Stenosis Post-Procedure (%): 0 Post-Procedure AMBAR Flow: 3 Devices(s) Deployed: Yes Yes Intraprocedure Events Significant Disection: No Perforation: No Cardiac Cath Procedure Full Procedure Date September 10, 2021 Pre-Procedure Diagnosis Pre-Procedure Diagnosis: Acute Coronary Syndrome AUC Score AUC Score: 7 Post-Procedure Diagnosis Post-Procedure Diagnosis: Severe CAD and Successful PCI Procedure(s) Performed Procedure(s) Performed: Coronary Angiography and Drug Eluting Stent Lumpia Wrapper Maker Jefry Henao MD Engraver Optical Frames(s) Deibler Estimated Blood Loss Estimated Blood Loss: 15 Medication(s) Medication(s): Clopidogrel, Heparin, Lidocaine 1%, Nicardipine and Nitroglycerin Summary of Findings Indication: Unstable angina Access: 6 Fr right ELECTRONIC DRAFTER Catheters: EBU 3.5 guide Findings: For full details of patient's coronary angiography please see cath report dictated by Dr. Zuniga. Briefly, patient found to have severe single-vessel disease with a 95% proximal stenosis. Decision to proceed with PCI. -- PCI -- Antithrombotic therapy: Heparin, clopidogrel Procedure: Left main cannulated with EBU 3.5 guide Computer Engineer 50 wire passed across lesion into distal vessel Proximal LAD lesion predilated with 2.5 compliant balloon Dilated lesion stented with 3.0 x 18 mm Electra drug-eluting stent Stent post-dilated with 3.5 noncompliant balloon IC vasodilators administered for spasm Post procedure AMBAR 3 flow, stent well expanded with minimal residual stenosis and no apparent cardiac complications. Arterial Closure: TR band Summary: 1. Successful PCI of proximal LAD with single drug-eluting stent (3.0 x 18 mm Navdeep; postdilated with 3.5 NC) Recommendations: To PCU for continued monitoring Loaded with clopidogrel 600 mg in Color Depositing Machine Tender Continue dual-antiplatelet therapy for at least 1 year Consult cardiac Rehab Hemodynamics Rest Ao:: 126/64/90 Final Ao: 133/73/101 LV: 123/5 Recommendations Recommendations: PCI without planned CABG Specimens Specimens: None Radiation Exposure (mGy) 817 Contrast (mls) 80 Fluids (cc crystalloids) Fluids (cc crystalloids): 182 Drains Drains: None Anesthesia Moderate [id number] Procedural Complication(s) None Disposition PCU I attest to the content of the Intraoperative Record and any orders documented therein. Any exceptions are noted below. [facility] Card Cath Procedure Codes Moderate Sedation Procedure 1: Sedation/Anesthesia: 45233 Mod Sedation by the same physician; Ea [id number] Minutes Stenting Procedure 1: Cardiovascular Stent Procedures: 15282 Perc transcatheter placement of intracoronary stent(s), with ang PG Care Time/CCT Total # of Minutes Spent Total Time Spent with Patient: Total time spent is greater than 50% in coordination of care (as documented) at patient's floor/unit and/or counseling patient:
--- NOTE | 2021-09-10 15:50 | Hospitalist Progress Note ---
Date of Service September 10, 2021 Assessment & Plan (1) Chest pain, exertional: (2) Unstable angina: Plan: Exertional chest pain EKG show ST changes in anterior leads Trops are negative Tele was normal sinus rhythm CT dissection study did not show thoracic dissection but showed a 3.4cm lesion in left hepatic lobe. I discussed this with patient. She reported she is aware of a lesion in her liver that her PCP had been surveilling but unsure of size Continue Aspirin 81mg Started atorvastatin 40mg Lipid panel shows hypercholesterolemia Discussed with Tool Sharpener Patient taken to cardiac cath which showed 95% stenosis of pLAD s/p PCI with single GABBY Plavix started Admission and Anticipated Discharge Date Admission Date: September 09, 2021 Subjective Patient seen earlier today prior to cardiac catheterization Patient reported exertional chest pain while walking to bathroom this morning Denied any Shortness of breath, cough, nausea,vomiting, dizziness Resolved at rest Denied any other complaints Physical Exam Physical Exam: Prior to cardiac cath Constitutional: + well hydrated; no acute distress Eyes: PERRL, conjunctivae normal, anicteric sclerae ENMT: external ear and nose normal, oropharynx normal Respiratory: normal respiratory effort, lungs clear to auscultation Cardiovascular: RRR, no murmur, no edema Gastrointestinal (Abdomen): normal bowel sounds, soft, nontender, no hepatosplenomegaly Musculoskeletal: no cyanosis or clubbing, extremities motor strength 5/5 Neurologic: PERRL, EOMI, accommodation nl, no face palsy, no dysarthria Psychiatric: A+Ox3, euthymic affect Results & Data Results & Data ([facility]) Vital Signs (Past 12 Hours) Vital Signs Temp Pulse Pulse Pulse Resp BP Pulse Ox 09/10/21 15:21 59 L 16 115/73 96 09/10/21 14:51 58 L 17 167/77 H 97 09/10/21 14:36 63 16 115/76 96 09/10/21 14:21 62 18 125/77 95 09/10/21 14:06 36.6 C 58 L 18 147/76 H 96 09/10/21 11:00 36.7 C 70 18 115/73 94 09/10/21 07:08 55 L 09/10/21 06:52 36.7 C 61 18 117/69 94 09/10/21 03:52 36.8 C 62 18 111/71 95 Laboratory Results Abnormal lab results 09/10/21 09/10/21 Range/Units 06:03 06:03 RBC 3.87 L (4.2-5.4) M/uL Hct 36.9 L (37-47) % RDW Std Deviation 47.0 H (36.4-46.3) fL MPV 10.8 H (7.4-10.4) fL Cholesterol 229 H (0-200) mg/dl
--- NOTE | 2021-09-10 17:17 | Electrocardiogram Report ---
Test Reason : Blood Pressure : / mmHG Vent. Rate : 073 BPM Atrial Rate : 073 BPM P-R Int : 196 ms QRS Dur : 092 ms QT Int : 408 ms P-R-T Axes : 014 -42 040 degrees QTc Int : 449 ms Normal sinus rhythm Left axis deviation Incomplete right bundle branch block Abnormal ECG When compared with ECG of 09-SEP-2021 08:58, No significant change was found Confirmed by Jefry Prescott ([id number]) on 09/10/2021 5:17:07 PM Referred By: REFERRED SELF Confirmed By:Jean Carlos Prescott
[2021-09-10] MEDS ORDERED: ACETAMINOPHEN 325 MG TAB PO PRN (19:47)
[2021-09-11 05:53] LABS: Hematocrit (blood only) 39.5 % (37-47); Hemoglobin 13.2 g/dL (12.0-16.0); Mean Corpuscular Hgb Conc 33.4 g/dL (32-36); Mean Corpuscular Volume 95.9 fL (80-100); Mean Platelet Volume 10.6 fL (7.4-10.4); Platelet Count 281 K/uL (130-400); RDW Coefficient of Variation 13.6 % (11.5-14.5); RDW Standard Deviation 47.4 fL (36.4-46.3); Red Blood Count 4.12 M/uL (4.2-5.4); White Blood Count 6.35 K/uL (4.8-10.8)
[2021-09-11 06:25] LABS: BUN Creatinine Ratio 24.6 (10-20); Calcium 8.6 mg/dl (8.5-10.1); Creatinine Clr Calc Pharmacy 73.3 ml/min; Est GFR (African American) 95.4 ml/min; Est GFR (Non-African American) 82.3 ml/min; Potassium 3.7 mmol/L (3.5-5.1)
[2021-09-11] MEDS ORDERED: CLOPIDOGREL BISULFATE 75 MG TAB PO SCH (09:00)
[2021-09-11] MEDS: ATORVASTATIN 40 MG TAB PO SCH (09:01)
[2021-09-11] MEDS: ASPIRIN 81 MG ECTAB PO SCH (09:01)
[2021-09-11] MEDS: CHOLECALCIFEROL 1,000 UNITS 25 MCG TAB PO SCH (09:02)
[2021-09-11] MEDS: CYANOCOBALAMIN 500 MCG TABLET (VITAMIN B-12) PO SCH (09:02)
--- NOTE | 2021-09-11 09:48 | Cardiology Progress Note ---
Date of Service September 11, 2021 Assessment & Plan (1) Unstable angina: (2) Chest pain, exertional: (3) Abnormal ECG: Plan: The patient can be discharged home on Plavix, aspirin and atorvastatin. Patient understands the importance of taking dual antiplatelet therapy for at least a year. The patient plans to follow-up with her primary care physician in [place] who will refer her to a micropaleontologist that she has seen in the past. Admission and Anticipated Discharge Date Admission Date: September 10, 2021 Subjective The patient had an uneventful night. She has been up and ambulating without chest pain. Review of Systems Review of Systems: Review of Systems: See HPI for pertinent positives. All other 10 point review of systems are negative. Physical Exam Physical Exam: General: no acute distress and stated age Head: normocephalic, no masses, lesions, tenderness or abnormalities Eyes: conjunctiva are pink and non-injected, sclera clear Neck: supple, no adenopathy, no bruits, normal jugular venous pulse, no hepatojugular reflux Chest: normal shape and normal respiratory effort Lungs: clear to auscultation and percussion Cardiac Exam: - regular rate & rhythm, no murmurs gallops or rubs - normal S1, normal S2 Pulses: 2(+) throughout Abdomen: abdomen soft, non-tender, no abnormal masses and no hepatosplenomegaly Musculoskeletal: no gait disturbance, no joint inflammation, no deforming arthritis Extremities: no edema and no cyanosis Neuro: grossly normal exam Results & Data ([facility]) Vital Signs (Past 12 Hours) Vital Signs Temp Pulse Pulse Resp BP Pulse Ox 09/11/21 09:42 77 09/11/21 03:03 36.5 C 84 24 93/63 L 94 09/10/21 23:09 37.5 C 73 14 110/63 94 Laboratory Results Laboratory Results - last 24 hr 09/10/21 09/10/21 09/11/21 06:03 06:03 05:37 WBC 6.35 RBC 4.12 L Hgb 13.2 Hct 39.5 MCV 95.9 MCH 32.0 MCHC 33.4 RDW Std Deviation 47.4 H RDW Coeff of Jyothi 13.6 Plt Count 281 MPV 10.6 H Sodium Potassium Chloride Carbon Dioxide Anion Gap BUN Creatinine Est Cr Clr Drug Dosing Est GFR ( Amer) Est GFR (Non-Af Amer) BUN/Creatinine Ratio Glucose Estimat Average Glucose 111 Hemoglobin A1c 5.5 Calcium Triglycerides 103 Cholesterol 229 H LDL Cholesterol, Calc 103 VLDL Cholesterol, Calc 21 HDL Cholesterol 105 Cholesterol/HDL Ratio 2 09/11/21 05:37 WBC RBC Hgb Hct MCV MCH MCHC RDW Std Deviation RDW Coeff of Jyothi Plt Count MPV Sodium 136 Potassium 3.7 Chloride 106 Carbon Dioxide 27 Anion Gap 3.0 BUN 18 Creatinine 0.73 Est Cr Clr Drug Dosing 73.3 Est GFR ( Amer) 95.4 Est GFR (Non-Af Amer) 82.3 BUN/Creatinine Ratio 24.6 H Glucose 91 Estimat Average Glucose Hemoglobin A1c Calcium 8.6 Triglycerides Cholesterol LDL Cholesterol, Calc VLDL Cholesterol, Calc HDL Cholesterol Cholesterol/HDL Ratio Medications Administered Current Inpatient Medications Acetaminophen (Acetaminophen 325 Mg Tab) 650 mg PO Q4H PRN PRN Reason: Pain or Fever Stop: 10/10/21 19:46 Last Admin: 09/10/21 20:20 Dose: 650 mg Documented by: Aspirin (Aspirin 81 Mg Ectab) 81 mg PO [facility] Stop: 10/10/21 09:14 Last Admin: 09/11/21 09:01 Dose: 81 mg Documented by: Atorvastatin Calcium (Atorvastatin 40 Mg Tab) 40 mg PO [facility] Stop: 10/10/21 09:14 Last Admin: 09/11/21 09:01 Dose: 40 mg Documented by: Clopidogrel Bisulfate (Clopidogrel Bisulfate 75 Mg Tab) [facility] Stop: 10/11/21 08:59 Last Admin: 09/11/21 09:01 Dose: 75 mg Documented by: Cyanocobalamin (Cyanocobalamin 500 Mcg Tablet (Vitamin B-12)) 1,000 mcg PO DAILY [facility] Stop: 10/10/21 08:59 Last Admin: 09/11/21 09:02 Dose: Not Given Documented by: Nitroglycerin (Nitroglycerin Sl 0.4 Mg/Tab Tab) 0.4 mg SL PRN PRN PRN Reason: chest pain Stop: 10/09/21 10:59 Last Admin: 09/09/21 11:09 Dose: 0.4 mg Documented by: Vitamin D (Cholecalciferol 1,000 Units 25 Mcg Tab) 1,000 units PO DAILY [facility] Stop: 10/10/21 08:59 Last Admin: 09/11/21 09:02 Dose: Not Given Documented by:
[2021-09-11 11:33] VITALS: PULSE 80; TEMP 97.3; O2SAT 100
--- NOTE | 2021-09-11 13:55 | Discharge Summary ---
Date of Service September 11, 2021 Admission HPI Per Admitting Provider 70-year-old woman with reported history of thoracic aortic aneurysm who presents to the hospital complaining of chest pain. Patient reported that chest pain started while she was driving from [place] to her sister's yesterday. Initially chest pain was described as constricting, not referred, lasted a few minutes. Occurred twice yesterday [initially during the drive and another episode while walking back after using the restroom to the car] Reports waking up this morning with similar chest constriction, referred to the neck, associated with tingling in both hands and states that she felt a little short of breath at the time. Lasted some minutes and stopped. Patient also reported another episode this morning prior to presentation to the hospital and had 2 more episodes while in the hospital walking to the bathroom as well as to x-ray. She denied similar episodes in the past. Patient reports history of thoracic aortic aneurysm that was diagnosed 4 years ago and had been monitored. Reports last scan was about 6 weeks ago which was unchanged On presentation to the ER, EKG showedST depression in lateral leads. 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 No chemo. Had radiation Bunionectomy D/C 1999 Tonsillectomy at 2 years Denied any known allergies Admission Exam Per Admitting Provider Constitutional: + well hydrated; no acute distress Eyes: PERRL, conjunctivae normal, anicteric sclerae ENMT: external ear and nose normal, oropharynx normal Respiratory: normal respiratory effort, lungs clear to auscultation Cardiovascular: RRR, no murmur, no edema Gastrointestinal (Abdomen): normal bowel sounds, soft, nontender, no hepatosplenomegaly Musculoskeletal: no cyanosis or clubbing, extremities motor strength 5/5 Neurologic: PERRL, EOMI, accommodation nl, no face palsy, no dysarthria Psychiatric: A+Ox3, euthymic affect Principal Diagnosis Unstable angina Coronary artery disease (proximal LAD) Status post drug eluting stent Discharge Exam Prior to cardiac cath Constitutional + well hydrated; no acute distress Eyes PERRL, conjunctivae normal, anicteric sclerae ENMT external ear and nose normal, oropharynx normal Respiratory normal respiratory effort, lungs clear to auscultation Cardiovascular RRR, no murmur, no edema Gastrointestinal (Abdomen) normal bowel sounds, soft, nontender, no hepatosplenomegaly Musculoskeletal no cyanosis or clubbing, extremities motor strength 5/5 Neurologic PERRL, EOMI, accommodation nl, no face palsy, no dysarthria Psychiatric A+Ox3, euthymic affect Discharge Data Allergies Allergy/AdvReac Type Severity Reaction Status Date / Time No Known Allergies Allergy Unverified 09/09/21 11:34 Consultations 09/09/21 11:02 ED Decision to Admit Stat 09/09/21 18:42 Consult Cardiology Routine 09/10/21 14:07 Consult Cardiac Rehabilitation Routine Procedures Performed Operation Date: 09/10/21 11:45 Actual Procedures p Cath, Left with Cors and Vent - Kirill Zuniga, DO s Drug Eluting Stent SGl Vessel - Alexandro Henao MD 2D ECHO 09/11/21 LV is normal in size, wall motion is normal EF 50-55 LA and RA are normal in size AV is tricuspid, leaflet thickness is normal. No or AI Mild AR Aortic root is normal size Ordered Studies 09/09/21 13:10 CT angio chest dissec wo/w con Urgent Caliber of the thoracic aorta is at the upper limits of normal, measuring 3.6 cm at the level of the main pulmonary. There is no thoracic aortic dissection or intramural hematoma. Mild cardiomegaly is noted. There is no pericardial effusion. No pulmonary emboli are identified. No enlarged axillary, mediastinal or hilar lymph nodes are present. There is no pneumomediastinum. The central airways are patent. No consolidation is present to suggest pneumonia. Mild subpleural groundglass opacities reflect atelectasis. There is no pneumothorax or pleural effusion. There is no acute fracture or suspicious lesion within visualized portions of the bony thorax. A 3.4 cm hypervascular segment within the medial segment of the left hepatic lobe is partially imaged on this exam. Upper abdomen is otherwise unremarkable. IMPRESSION: 1. No thoracic aortic dissection. 2. No acute process within the chest. 3. Mild cardiomegaly. 4. 3.4 cm hypervascular lesion within the medial segment of the left hepatic lobe, partially imaged on this exam. This may reflect focal nodular hyperplasia or a hemangioma although is indeterminate. Correlation with prior imaging studies, if available, is recommended. In the absence of prior studies, a nonemergent liver MRI is recommended. 09/10/21 11:46 CL Cath Imgs for PACS use only Stat Hospital Course (1) Chest pain, exertional: (2) Unstable angina: Exertional chest pain EKG show ST changes in anterior leads Trops were trended and were negative Tele was normal sinus rhythm CT dissection study did not show thoracic dissection but showed a 3.4cm lesion in left hepatic lobe. I discussed this with patient. 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 as she is being discharged to her sister's Will continue to get refills from her PCP and Longwall Machine Operator Helper when she gets one Provided information on how to request records for her PCP/Longwall Machine Operator Helper Total Time Total Time Spent Total Time Spent (In Minutes): 40 Total Time Includes: Examination of the Patient, Discharge Planning, Medication Reconciliation and Communication With Other Providers Discharge Plan Discharge Items Patient Disposition: Home - Self-Care Reason For Visit: CHEST PAIN Discharge Diagnosis: Unstable angina Coronary artery disease (proximal LAD) Status post drug eluting stent Activity: Resume your previous activity Non-emergency contact: Primary Care Provider and Longwall Machine Operator Helper Call non-emergency contact if: you have any medication questions and your symptoms worsen Follow-up/Referrals: JEREMY DIAZ [Other] Diet: Heart Healthy and Low Fat Addtl Attending Provider Instructions: Ms Solis. You came to the hospital complaining of chest pain. You were extensively evaluated and had a cardiac catheterization which showed significant narrowing in proximal LAD [left anterior descending] artery which is one of the blood vessels of your heart. You had a stent put in there. You were also found to have high cholesterol levels. You are being discharged on aspirin, Plavix and atorvastatin. You will need to be on aspirin and plavix for at least one year. It is very important that you follow-up with your primary doctor as well as a pipe straightener when you get home. It was a pleasure taking care of you Pending Studies at Discharge: No Stand-Alone Forms: My [facility], Smoking Cessation Medications and DC Order Prescriptions: New atorvastatin 40 mg Tablet 40 mg PO QAM Qty: 30 RF: 0 clopidogrel 75 mg Tablet 75 mg PO QAM Qty: 30 RF: 0 aspirin 81 mg Tablet,Delayed Release (Dr/Ec) 81 mg PO QAM Qty: 30 RF: 0 Continued cyanocobalamin (vitamin B-12) [Vitamin B-12] 1,000 mcg Tablet 1,000 mcg PO DAILY RF: 0 cholecalciferol (vitamin D3) [Vitamin D3] 25 mcg (1,000 unit) Tablet 1 unit PO DAILY RF: 0 Discharge Orders: Discharge Order (Routine); Ordered 09/11/21 Ordered By: Luna Solis Admission Data Admit Date/Time: 09/10/21 15:45 Attending Provider: Luna Solis I. Admit Provider: Luna Solis I. Other Providers: Luna Solis I. ; Kirill Zuniga Other Interventions: Discharge Summary Assessment (RN) Last Done: 09/11/21 14:05
[2021-09-11 14:08] VITALS: BP 121/74
== END 2021-09-11 15:21 | disposition home or self-care (01) | DRG 247 ==
LOC: ED 08:46 → 2N 08:46 → 1E 09-10 14:58